=== PATIENT | female | born 1945 | race Caucasian/White ===

== ENCOUNTER 2018-08-30 12:28 | Outpatient (CLI) | payer OTHER | END 2018-08-30 20:26 | disposition home or self-care (01) | LOC: SRD 12:28 | PROVIDERS: ATTEND Internal Medicine | DX: Z12.31 Encounter for screening mammogram for malignant neoplasm of breast (principal); K76.89 Other specified diseases of liver; N28.1 Cyst of kidney, acquired; R10.2 Pelvic and perineal pain; R93.2 Abnormal findings on diagnostic imaging of liver and biliary tract | CPT/HCPCS: 74018; 76700-TC; 76856-TC; 77067 ==

== ENCOUNTER 2021-06-13 08:15 | Outpatient (CLI) | payer OTHER | END 2021-06-13 19:33 | disposition home or self-care (01) | LOC: SUS 08:15 | PROVIDERS: ATTEND Internal Medicine | DX: Z12.31 Encounter for screening mammogram for malignant neoplasm of breast (principal); R31.9 Hematuria, unspecified; K76.89 Other specified diseases of liver; N28.1 Cyst of kidney, acquired; R10.30 Lower abdominal pain, unspecified; Z90.49 Acquired absence of other specified parts of digestive tract | CPT/HCPCS: 76700-TC; 77067 ==

== ENCOUNTER 2022-08-28 11:24 | Outpatient (CLI) | payer OTHER | END 2022-08-28 18:58 | disposition home or self-care (01) | LOC: SMA 11:24 | PROVIDERS: ATTEND Internal Medicine | DX: Z12.31 Encounter for screening mammogram for malignant neoplasm of breast (principal); N63.41 Unspecified lump in right breast, subareolar | CPT/HCPCS: 77067 ==

== ENCOUNTER 2023-09-25 10:52 | Outpatient (CLI) | payer OTHER | END 2023-09-25 19:22 | disposition home or self-care (01) | LOC: SMA 10:52 | PROVIDERS: ATTEND Internal Medicine | DX: Z12.31 Encounter for screening mammogram for malignant neoplasm of breast (principal) | CPT/HCPCS: 77067 ==